=== PATIENT | female | born 1945 | race Caucasian/White ===

== ENCOUNTER 2022-11-13 13:53 | Emergency (ER) | payer MEDICARE, OTHER ==
[~2022-11-13] VITALS: Ht 157.5 cm; Wt 64.5 kg
[2022-11-13 14:04] VITALS: BP 129/67
[2022-11-13] MEDS ORDERED: ondansetron 4mg rapidly disintigrating tab PO ONE (15:35)
[2022-11-13] MEDS ORDERED: HYDROcodone/acetaminophen 5mg/325mg tablet PO ONE (15:35)
[2022-11-13] MEDS ORDERED: HYDR-3965 PO (16:05)
[2022-11-13] MEDS ORDERED: ONDA4TAB12 PO (16:05)
== END 2022-11-13 16:35 | disposition home or self-care (01) ==
LOC: ER 13:54
DX: S82.141A Displaced bicondylar fracture of right tibia, initial encounter for closed fracture (principal); X58.XXXA Exposure to other specified factors, initial encounter; Y93.89 Activity, other specified; Y92.89 Other specified places as the place of occurrence of the external cause; Y99.8 Other external cause status
CPT/HCPCS: 73564; 73590; 73610; 99284